=== PATIENT | male | born 1990 | race Caucasian/White ===

== ENCOUNTER 2016-07-01 18:46 | Emergency (ER) | payer OTHER ==
[2016-07-01 19:25] VITALS: BP 135/84
== END 2016-07-01 19:26 | disposition other institution (70) ==
LOC: ED 18:46
DX: G89.29 Other chronic pain (principal); M54.9 Dorsalgia, unspecified; M54.2 Cervicalgia; R03.0 Elevated blood-pressure reading, without diagnosis of hypertension; J45.909 Unspecified asthma, uncomplicated

== ENCOUNTER 2017-11-28 20:10 | Emergency (ER) | payer OTHER ==
[~2017-11-28] VITALS: Ht 180.3 cm; Wt 57.6 kg
[2017-11-28 20:21] VITALS: Ht 180.3 cm; Wt 57.6 kg
[2017-11-29 00:39] VITALS: BP 127/76
== END 2017-11-29 00:54 | disposition home or self-care (01) ==
LOC: ED 20:10
DX: S86.812A Strain of other muscle(s) and tendon(s) at lower leg level, left leg, initial encounter (principal); J45.909 Unspecified asthma, uncomplicated; W17.89XA Other fall from one level to another, initial encounter; Y93.89 Activity, other specified; Y92.89 Other specified places as the place of occurrence of the external cause; Y99.8 Other external cause status

== ENCOUNTER 2019-03-15 11:17 | Emergency (ER) | payer OTHER ==
[~2019-03-15] VITALS: Ht 180.3 cm; Wt 59.4 kg
[2019-03-15 12:27] VITALS: Ht 180.3 cm; Wt 59.4 kg
[2019-03-15 14:09] LABS: BASOPHIL % 0.5 % (0-2); PLATELET COUNT 232 x10^3mcL (130-400); RED CELL DISTRIBUTION WIDTH 13.4 % (11.5-14.5)
[2019-03-15 14:29] LABS: CALCIUM 8.8 mg/dL (8.5-10.1); CHLORIDE SERUM 104 mmol/L (98-107); CREATININE SERUM 0.8 mg/dL (0.7-1.3); GFR1 > 60 mL/min; GLUCOSE SERUM 94 mg/dL (74-106); POTASSIUM SERUM 4.6 mmol/L (3.5-5.1); SODIUM SERUM 140 mmol/L (136-145)
[2019-03-15 14:33] LABS: ALBUMIN 3.6 g/dL (3.4-5.0); ALKALINE PHOSPHATASE 92 U/L (46-116); ALT/SGPT 45 U/L (16-63); AST/SGOT 20 U/L (15-37); BILIRUBIN TOTAL 0.32 mg/dL (0.20-1.00); TOTAL PROTEIN, SERUM 7.2 g/dL (6.4-8.2)
[2019-03-15 15:15] VITALS: BP 124/71
== END 2019-03-15 15:15 | disposition home or self-care (01) ==
LOC: ED 11:17
PROVIDERS: Emergency Medicine
DX: N30.91 Cystitis, unspecified with hematuria (principal); Q61.3 Polycystic kidney, unspecified; J45.909 Unspecified asthma, uncomplicated
CPT/HCPCS: 36415

== ENCOUNTER 2019-04-10 19:47 | Emergency (ER) | payer OTHER ==
[~2019-04-10] VITALS: Ht 154.9 cm; Wt 56.8 kg
[2019-04-10 19:58] VITALS: Ht 154.9 cm; Wt 56.8 kg
[2019-04-10 22:16] VITALS: BP 133/82
== END 2019-04-10 22:30 | disposition home or self-care (01) ==
LOC: ED 19:47
DX: N45.1 Epididymitis (principal); J45.909 Unspecified asthma, uncomplicated; Z98.890 Other specified postprocedural states
CPT/HCPCS: 87491; 87591; J0696; Q0092

== ENCOUNTER 2019-08-21 16:52 | Emergency (ER) | payer OTHER | END 2019-08-21 19:38 | disposition other institution (70) | LOC: ED 16:52 | DX: Z02.89 Encounter for other administrative examinations (principal) ==

== ENCOUNTER 2019-08-21 16:52 | Emergency (ER) | payer OTHER ==
[~2019-08-21] VITALS: Ht 180.3 cm; Wt 63.5 kg
[2019-08-21 17:01] VITALS: Ht 180.3 cm; Wt 63.5 kg
[2019-08-21 19:38] VITALS: BP 121/89
== END 2019-08-21 19:38 | disposition other institution (70) ==
LOC: EDBD 16:52 → ED 16:52
DX: S09.90XA Unspecified injury of head, initial encounter (principal); M79.605 Pain in left leg; M79.602 Pain in left arm; X58.XXXA Exposure to other specified factors, initial encounter; Y93.89 Activity, other specified; Y92.89 Other specified places as the place of occurrence of the external cause; Y99.8 Other external cause status
CPT/HCPCS: Q0092

== ENCOUNTER 2019-09-27 17:25 | Inpatient (IN) | payer OTHER ==
[~2019-09-27] VITALS: Ht 180.3 cm; Wt 57.6 kg
[2019-09-27 17:41] VITALS: Ht 180.3 cm; Wt 57.6 kg
[2019-09-27 18:46] LABS: PLATELET COUNT 757 x10^3mcL (130-400)
[2019-09-27 18:59] LABS: BAND NEUTROPHIL 10 % (0-10); BASOPHIL 0 % (0-2); MONOCYTE 3 % (0-7); SEGMENTED NEUTROPHILS 81 % (37-75)
[2019-09-27 19:00] LABS: CALCIUM 8.4 mg/dL (8.5-10.1); CREATININE SERUM 1.8 mg/dL (0.7-1.3); POTASSIUM SERUM 4.8 mmol/L (3.5-5.1)
[2019-09-27 19:01] LABS: PLATELET MORPHOLOGY PLATELETS INCREASED; rbc morphology (normal/abnorm) NORMAL (NORMAL)
[2019-09-27 19:04] LABS: BILIRUBIN TOTAL 0.3 mg/dL (0.20-1.00); TOTAL PROTEIN, SERUM 7.6 g/dL (6.4-8.2)
[2019-09-27 19:07] LABS: ALBUMIN 1.8 g/dL (3.4-5.0)
[2019-09-27 19:42] LABS: UA SPECIFIC GRAVITY 1.025 (1.005-1.035); microscopic required? YES; urine erythrocyte 2+ (NEGATIVE)
[2019-09-27 23:43] VITALS: BP 114/64
[2019-09-28 05:55] VITALS: BP 127/85
[2019-09-28 06:44] LABS: CALCIUM 7.7 mg/dL (8.5-10.1); CHLORIDE SERUM 102 mmol/L (98-107); CREATININE SERUM 1.3 mg/dL (0.7-1.3); GFR1 > 60 mL/min; GLUCOSE SERUM 121 mg/dL (74-106); POTASSIUM SERUM 3.9 mmol/L (3.5-5.1); SODIUM SERUM 134 mmol/L (136-145)
[2019-09-28 06:56] LABS: RED CELL DISTRIBUTION WIDTH 15.3 % (11.5-14.5)
[2019-09-28 08:43] VITALS: BP 110/80
[2019-09-28 12:20] VITALS: BP 130/81
[2019-09-28 12:33] LABS: MONOCYTE 2 % (0-7); SEGMENTED NEUTROPHILS 93 % (37-75)
[2019-09-28 12:34] LABS: rbc morphology (normal/abnorm) NORMAL (NORMAL)
[2019-09-28 12:40] LABS: PLATELET COUNT 774 x10^3mcL (130-400)
[2019-09-28 17:05] VITALS: BP 129/77
[2019-09-28 20:50] VITALS: BP 131/86
[2019-09-29 05:41] VITALS: BP 133/76
[2019-09-29 07:39] LABS: RED CELL DISTRIBUTION WIDTH 14.9 % (11.5-14.5)
[2019-09-29 08:10] LABS: CARBON DIOXIDE 23.4 mmol/L (21-32); CHLORIDE SERUM 100 mmol/L (98-107); CREATININE SERUM 1.2 mg/dL (0.7-1.3); GLUCOSE SERUM 108 mg/dL (74-106); SODIUM SERUM 133 mmol/L (136-145)
[2019-09-29 08:11] LABS: ALBUMIN 1.4 g/dL (3.4-5.0); ALKALINE PHOSPHATASE 226 U/L (46-116); ALT/SGPT 48 U/L (16-63); AST/SGOT 30 U/L (15-37); BILIRUBIN TOTAL 0.4 mg/dL (0.20-1.00); CALCIUM 7.5 mg/dL (8.5-10.1); GFR1 > 60 mL/min; TOTAL PROTEIN, SERUM 6.4 g/dL (6.4-8.2)
[2019-09-29 09:20] VITALS: BP 132/83
[2019-09-29 12:25] LABS: BAND NEUTROPHIL 2 % (0-10); MONOCYTE 6 % (0-7); SEGMENTED NEUTROPHILS 86 % (37-75)
[2019-09-29 12:26] LABS: rbc morphology (normal/abnorm) ABNORMAL (NORMAL)
[2019-09-29 12:30] VITALS: BP 134/86
[2019-09-29 13:13] LABS: PLATELET COUNT 792 x10^3mcL (130-400)
[2019-09-29 17:00] VITALS: BP 139/90
[2019-09-29 20:43] VITALS: BP 128/86
[2019-09-30 05:21] VITALS: BP 129/84
[2019-09-30 07:11] LABS: RED CELL DISTRIBUTION WIDTH 14.5 % (11.5-14.5)
[2019-09-30 07:17] VITALS: BP 123/78
[2019-09-30 07:30] LABS: BASOPHIL % 2.4 % (0-2)
[2019-09-30 07:32] LABS: CALCIUM 7.5 mg/dL (8.5-10.1); CARBON DIOXIDE 27.4 mmol/L (21-32); CHLORIDE SERUM 97 mmol/L (98-107); CREATININE SERUM 1.2 mg/dL (0.7-1.3); GFR1 > 60 mL/min; GLUCOSE SERUM 103 mg/dL (74-106); PLATELET COUNT 767 x10^3mcL (130-400); SODIUM SERUM 132 mmol/L (136-145)
[2019-09-30 07:49] LABS: ALKALINE PHOSPHATASE 181 U/L (46-116); ALT/SGPT 66 U/L (16-63); AST/SGOT 48 U/L (15-37); BILIRUBIN TOTAL 0.4 mg/dL (0.20-1.00); CALCIUM 7.6 mg/dL (8.5-10.1); CARBON DIOXIDE 23.9 mmol/L (21-32); CHLORIDE SERUM 98 mmol/L (98-107); CREATININE SERUM 1.2 mg/dL (0.7-1.3); GFR1 > 60 mL/min; GLUCOSE SERUM 110 mg/dL (74-106); POTASSIUM SERUM 4.3 mmol/L (3.5-5.1); SODIUM SERUM 132 mmol/L (136-145); TOTAL PROTEIN, SERUM 6.6 g/dL (6.4-8.2)
[2019-09-30 07:51] LABS: ALBUMIN 1.4 g/dL (3.4-5.0)
[2019-09-30 12:34] VITALS: BP 118/78
[2019-09-30 17:45] VITALS: BP 116/70
[2019-09-30 21:48] VITALS: BP 118/76
[2019-10-01 05:09] VITALS: BP 135/83
[2019-10-01 07:44] LABS: ALKALINE PHOSPHATASE 186 U/L (46-116); ALT/SGPT 82 U/L (16-63); AST/SGOT 68 U/L (15-37); BILIRUBIN TOTAL 0.46 mg/dL (0.20-1.00); CALCIUM 8.1 mg/dL (8.5-10.1); CARBON DIOXIDE 24.8 mmol/L (21-32); CHLORIDE SERUM 99 mmol/L (98-107); GFR1 > 60 mL/min; GLUCOSE SERUM 111 mg/dL (74-106); POTASSIUM SERUM 4.2 mmol/L (3.5-5.1); SODIUM SERUM 132 mmol/L (136-145)
[2019-10-01 07:49] LABS: ALBUMIN 2.6 g/dL (3.4-5.0)
[2019-10-01 08:37] VITALS: BP 133/85
[2019-10-01 09:09] LABS: PLATELET COUNT 722 x10^3mcL (130-400)
[2019-10-01 14:19] LABS: SEGMENTED NEUTROPHILS 73 % (37-75)
[2019-10-01 14:20] LABS: ATYPICAL LYMPH 1 %; BAND NEUTROPHIL 12 % (0-10); MONOCYTE 5 % (0-7)
[2019-10-01 14:21] LABS: PLATELET MORPHOLOGY LARGE PLATELET SEEN; rbc morphology (normal/abnorm) ABNORMAL (NORMAL); schistocyte (helmet cell) 1+
[2019-10-01 17:24] VITALS: BP 131/77
[2019-10-01 21:00] VITALS: BP 130/85
[2019-10-02 05:30] VITALS: BP 132/82
[2019-10-02 07:52] LABS: ALBUMIN 2.9 g/dL (3.4-5.0); ALKALINE PHOSPHATASE 203 U/L (46-116); ALT/SGPT 174 U/L (16-63); AST/SGOT 120 U/L (15-37); BILIRUBIN TOTAL 0.54 mg/dL (0.20-1.00); CALCIUM 8.5 mg/dL (8.5-10.1); CARBON DIOXIDE 24.7 mmol/L (21-32); CHLORIDE SERUM 101 mmol/L (98-107); GFR1 > 60 mL/min; GLUCOSE SERUM 99 mg/dL (74-106); POTASSIUM SERUM 4.5 mmol/L (3.5-5.1); SODIUM SERUM 134 mmol/L (136-145); TOTAL PROTEIN, SERUM 7.3 g/dL (6.4-8.2)
[2019-10-02 08:18] LABS: BASOPHIL % 0.5 % (0-2)
[2019-10-02 09:13] VITALS: BP 133/85
[2019-10-02 12:47] LABS: PLATELET COUNT 746 x10^3mcL (130-400); RED CELL DISTRIBUTION WIDTH 14.9 % (11.5-14.5)
[2019-10-02 14:27] VITALS: BP 131/76
[2019-10-02 15:59] VITALS: BP 131/76
== END 2019-10-02 16:55 | disposition home or self-care (01) | DRG 720 ==
LOC: ED 17:25 → MU 21:23
PROVIDERS: Emergency Medicine; Internal Medicine; ADMIT Internal Medicine Pulmonary Disease; ATTEND Internal Medicine Pulmonary Disease
DX: A41.89 Other specified sepsis (principal); U07.1 COVID-19; E43 Unspecified severe protein-calorie malnutrition; Q61.3 Polycystic kidney, unspecified; J45.909 Unspecified asthma, uncomplicated; N12 Tubulo-interstitial nephritis, not specified as acute or chronic; Z68.1 Body mass index [BMI] 19.9 or less, adult
CPT/HCPCS: 82784; 83516; 86255; G0378; J0696; J1644; J1885; J2185; J3370; J7030; J7040; J7050; J7060; P9047; Q0092; U0003-CS